=== PATIENT | female | born 1990 | race Two or more races ===

== ENCOUNTER → 2021-05-19 | Outpatient (CLI) | payer SELFPAY ==
[2017-09-19 13:18] VITALS: BP 107/63
[~2021-05-19] MED LIST: ACET-704 PO; DOCU-109 PO; FERR325T14 PO; IBUP-1060 PO; OXYC1TAB15 PO
== END ==
LOC: LAB 12:42
PROVIDERS: ATTEND Obstetrics & Gynecology
DX: Z01.812 Encounter for preprocedural laboratory examination (principal); Z20.822 Contact with and (suspected) exposure to COVID-19
CPT/HCPCS: U0003; U0005